=== PATIENT | female | born 1965 ===

== ENCOUNTER 2016-11-30 19:09 | Emergency (ER) | payer OTHER ==
[2016-11-30] MEDS ORDERED: MECLIZINE HCL 25 MG TABLET ONE (21:48)
[2016-11-30] MEDS ORDERED: ACETAMINOPHEN 325 MG TABLET ONE (21:48)
== END 2016-11-30 22:19 | disposition home or self-care (01) ==
LOC: ED 19:09
DX: R42 Dizziness and giddiness (principal); I44.7 Left bundle-branch block, unspecified; I10 Essential (primary) hypertension
CPT/HCPCS: 99283 ×2; 93005; A9270 ×2